=== PATIENT | female | born 1965 | race Two or more races ===

== ENCOUNTER 2021-06-06 05:52 | Emergency (ER) | payer OTHER ==
[~2021-06-06] VITALS: Ht 167.6 cm; Wt 90.7 kg
[2021-06-06] MEDS ORDERED: NAPROXEN (06:33)
[2021-06-06] MEDS ORDERED: FLAGYL500MG PO (15:15)
[2021-06-06] MEDS ORDERED: CIPRO500 MG PO (15:15)
[2021-06-06] MEDS ORDERED: KETO10TA2 PO (15:27)
== END 2021-06-06 15:52 | disposition home or self-care (01) ==
LOC: ER 05:52
DX: K57.92 Diverticulitis of intestine, part unspecified, without perforation or abscess without bleeding (principal)